=== PATIENT | female | born 1985 | race Caucasian/White ===

== ENCOUNTER 2023-09-19 07:30 | Inpatient (IN) | payer OTHER ==
[~2023-09-19] VITALS: Ht 180.3 cm; Wt 81.6 kg
[~2023-09-19 07:30] MED LIST: ATROVENT HFA12.9 GM IH
[2023-09-19 09:03] LABS: HEMOGLOBIN 11.7 g/dL (12.0-15.00); MEAN CELL VOLUME 86.3 fL (80.00-100.00); MEAN CORPUSCULAR HGB CONC 33.6 g/dl (32.0-36.0); PLATELET COUNT 303 K/uL (150-450); RED BLOOD COUNT 4.05 M/uL (4.00-6.00); RED CELL DISTRIBUTION WIDTH 14.2 % (11.5-14.5)
[2023-09-19] MEDS ORDERED: MONTELUKAST SOD10 MG PO (09:08)
[2023-09-19] MEDS ORDERED: FLONASE16 GM (09:08)
[2023-09-19] MEDS ORDERED: MULTIPLE VITAM1 EAC2 PO (09:09)
[2023-09-19] MEDS ORDERED: NAPR500T14 PO (09:09)
[2023-09-19] MEDS ORDERED: PROAIR RESPICL90 MCG IH (09:09)
[2023-09-19 09:24] LABS: INR 1.03; PARTIAL THROMBOPLASTIN TIME 29.3 SECONDS (22.0-34.0); PROTHROMBIN TIME 10.8 SECONDS (9.0-11.5)
[2023-09-19 09:28] LABS: PH,URINE 5.5 (5.0-8.0); URINE APPEARANCE Clear; URINE BILIRRUBIN Negative (NEGATIVE); URINE BLOOD Negative; URINE COLOR Yellow; URINE GLUCOSE Negative (NEGATIVE); URINE LEUKOCYTE Large; URINE NITRATE Negative; URINE PROTEIN Negative (NEGATIVE); URINE UROBILINOGEN 0.2 E.U./dl
[2023-09-19 09:32] LABS: URINE BACTERIA 1446.4 uL (0.0-1933); URINE EPITHELIAL CELLS 66.7 uL (0.0-38.8); URINE RBC 5.1 uL (0.0-20.8); URINE WBC 217.9 uL (0.0-23.2)
[2023-09-19 09:54] LABS: ALBUMIN 3.8 gm/dL (3.4-5.0); BILIRUBIN TOTAL 0.26 mg/dL (0.3-1.2); CALCIUM 8.9 mg/dL (8.5-10.1); CREATININE SERUM 0.61 mg/dL (0.55-1.02); GFR 109.19; GLOBULINA 3.6 G/DL (2.4-3.5); POTASSIUM 3.98 mEq/L (3.5-5.1); TOTAL PROTEIN 7.4 gm/dL (6.4-8.2)
[2023-09-26] MEDS ORDERED: CEFAZOLIN SODIUM 1,000 MG VIAL ONE (07:11)
[2023-09-26] MEDS ORDERED: DEXAMETHASONE SODIUM PHOSPHATE 4 MG/ML VIAL ONE ×2 (07:13→07:22)
[2023-09-26] MEDS ORDERED: DEXAMETHASONE SODIUM PHOSPHATE 4 MG/ML VIAL IV ONE ×2 (08:15)
[2023-09-26] MEDS ORDERED: ENALAPRILAT DIHYDRATE 1.25 MG/ML VIAL IV PRN (09:45)
[2023-09-26] MEDS ORDERED: ONDANSETRON HCL 2 MG/ML VIAL IV PRN (09:45)
[2023-09-26] MEDS ORDERED: TRIAMCINOLONE A15 G1 (09:47)
[2023-09-26] MEDS ORDERED: TRAMADOL HCL 50 MG TABLET PO SCH (12:00)
[2023-09-26] MEDS ORDERED: LEVALBUTEROL HCL 0.63 MG/3 ML SOLUTION IH SCH (17:00)
[2023-09-26] MEDS ORDERED: ACETAMINOPHEN 500 MG GEL..CAP PO SCH (17:00)
[2023-09-26] MEDS ORDERED: FLUTICASONE PROPIONATE 50 MCG SPRAY NASAL SCH (17:00)
[2023-09-26] MEDS ORDERED: BUDESONIDE 0.5 MG/2 ML AMPUL.NEB IH ONE (18:55)
[2023-09-26] MEDS ORDERED: BUDESONIDE 0.5 MG/2 ML AMPUL.NEB IH SCH (21:00)
[2023-09-27] MEDS ORDERED: LEVOTHYROXINE SODIUM 125 MCG TABLET PO SCH (09:00)
[2023-09-27] MEDS ORDERED: MONTELUKAST SODIUM 10 MG TABLET PO SCH (09:00)
[2023-09-27] MEDS ORDERED: CYCLOBENZAPRINE HCL 5 MG TABLET PO SCH (09:00)
== END 2023-09-27 13:40 | disposition home or self-care (01) | DRG 627 ==
LOC: O/R 09-26 05:19 → SURH 09-26 07:00 → SURG 09-26 16:28
PROVIDERS: ADMIT Surgery; ATTEND Surgery
PROC: 0GTH0ZZ Resection of Right Thyroid Gland Lobe, Open Approach (ICD-10-PCS; principal; 2023-09-26 07:00)
DX: C73 Malignant neoplasm of thyroid gland (principal); Z20.822 Contact with and (suspected) exposure to COVID-19

== ENCOUNTER 2023-11-25 12:28 | Outpatient (CLI) | payer OTHER ==
[~2023-11-25 12:28] MED LIST changes: +FLONASE16 GM; +MONTELUKAST SOD10 MG PO; +MULTIPLE VITAM1 EAC2 PO; +NAPR500T14 PO; +PROAIR RESPICL90 MCG IH; +TRIAMCINOLONE A15 G1
== END 2023-11-25 12:32 | disposition home or self-care (01) ==
LOC: NUCLEAR 12:28
PROVIDERS: ATTEND Internal Medicine Sports Medicine
DX: C73 Malignant neoplasm of thyroid gland (principal)

== ENCOUNTER 2023-12-02 12:59 | Outpatient (CLI) | payer OTHER | END 2023-12-02 13:00 | disposition home or self-care (01) | LOC: NUCLEAR 12:59 | PROVIDERS: ATTEND Internal Medicine Sports Medicine | DX: C73 Malignant neoplasm of thyroid gland (principal) ==